=== PATIENT | female | born 1990 | race Caucasian/White ===

== ENCOUNTER 2018-02-21 13:50 | Emergency (ER) | payer MEDICAID ==
--- NOTE | 2018-02-21 14:17 | EDPHY ---
H & P Stated Complaint: c/o small painful bump just under umbilicus starting this am Time Seen by Provider: 02/21/18 14:08 HPI/ROS: CHIEF COMPLAINT: Abdominal lump HISTORY OF PRESENT ILLNESS: The patient is a 27-year-old female who presents to the emergency department complaining of a painful lump in her belly button. She states that it has never bothered her before today. No vomiting or nausea. Normal bowel movements. No fever. No trauma. No urinary symptoms. No vaginal symptoms. She denies . REVIEW OF SYSTEMS: Constitutional: denies: chills, fever, recent illness, recent injury EENTM: denies: blurred vision, double vision, nose congestion Respiratory: denies: cough, shortness of breath Cardiac: denies: chest pain, irregular heart rate, lightheadedness, palpitations Gastrointestinal/Abdominal: See HPI denies: abdominal pain, diarrhea, nausea, vomiting, blood streaked stools Genitourinary: denies: dysuria, frequency, hematuria, pain Musculoskeletal: denies: joint pain, muscle pain Skin: denies: lesions, rash, jaundice, bruising Neurological: denies: headache, numbness, paresthesia, tingling, dizziness, weakness Hematologic/Lymphatic: denies: blood clots, easy bleeding, easy bruising Immunologic/allergic: denies: HIV/AIDS, transplant EXAM: GENERAL: Well-appearing, well-nourished and in no acute distress. HEAD: Atraumatic, normocephalic. EYES: Pupils equal round and reactive to light, extraocular movements intact, sclera anicteric, conjunctiva are normal. ENT: TMs normal, nares patent, oropharynx clear without exudates. Moist mucous membranes. NECK: Normal range of motion, supple without lymphadenopathy or JVD. LUNGS: Breath sounds clear to auscultation bilaterally and equal. No wheezes rales or rhonchi. HEART: Regular rate and rhythm without murmurs, rubs or gallops. ABDOMEN: Very small umbilical hernia that is painful but easily reducible. It recurs. Soft, nontender, normoactive bowel sounds. No guarding, no rebound. No masses appreciated. BACK: No CVA tenderness, no spinal tenderness, step-offs or deformities EXTREMITIES: Normal range of motion, no pitting or edema. No clubbing or cyanosis. NEUROLOGICAL: Cranial nerves II through XII grossly intact. Normal speech, normal gait. 5/5 strength, normal movement in all extremities, normal sensation PSYCH: Normal mood, normal affect. SKIN: Warm, dry, normal turgor, no visible rashes or lesions. Source: Patient Exam Limitations: No limitations - Medical/Surgical History Hx Asthma: Yes Hx Chronic Respiratory Disease: No Hx Diabetes: No Hx Cardiac Disease: No Hx Renal Disease: No Hx Cirrhosis: No Hx Alcoholism: No Hx HIV/AIDS: No Hx Splenectomy or Spleen Trauma: No Other PMH: asthma, add - Family History Significant Family History: No pertinent family hx - Social History Smoking Status: Current every day smoker Alcohol Use: None Constitutional: Initial Vital Signs Temperature (C) 36.6 C 02/21/18 13:55 Heart Rate 107 H 02/21/18 13:55 Respiratory Rate 18 02/21/18 13:55 Blood Pressure 119/80 02/21/18 13:55 O2 Sat (%) 98 02/21/18 13:55 O2 Delivery Mode Room Air Allergies/Adverse Reactions: No Known Allergies Allergy (Unverified 02/21/18 13:58) Home Medications: Medication Instructions Recorded Adderall 10 MG (*) 02/21/18 Albuterol 02/21/18 Medical Decision Making ED Course/Re-evaluation: Patient has a small tender umbilical hernia that is reducible. It tends to recurred. She has not had any symptoms of acute abdomen. No symptoms of bowel obstruction or necrosis or incarceration. We discussed doing CT scan to evaluate further and when discussing the risks and benefits agreed not to do 1 at this point. Discussed follow-up with surgery for elective repair. She understands this plan and declines further workup or testing this time. I offered pain medication which she declines. Differential Diagnosis: Partial list of the Differential diagnosis considered include but were not limited to; umbilical hernia, incarceration and although unlikely based on the history and physical exam, I also considered infection, perforation. I discussed these differential diagnoses and the plan with the patient as well as the usual and expected course. The patient understands that the diagnosis is provisional and that in medicine we are not always correct and that further workup is often warranted. Usual and customary warnings were given. All of the patient's questions were answered. The patient was instructed to return to the emergency department should the symptoms at all worsen or return, otherwise to followup with the physician as we discussed. Departure - Departure Disposition: Home, Routine, Self-Care Clinical Impression: Umbilical hernia Qualifiers: Obstruction and gangrene presence: without obstruction or gangrene Qualified Code(s): K42.9 - Umbilical hernia without obstruction or gangrene Condition: Fair Instructions: Umbilical Hernia (ED) Referrals: Britni Villarreal MD [Primary Care Provider] - As per Instructions Devonte Parikh MD [Medical Doctor] - 2-3 days, call for appt.
[2018-02-21 14:30] VITALS: BP 112/75
== END 2018-02-21 14:29 | disposition home or self-care (01) ==
DX: K42.9 Umbilical hernia without obstruction or gangrene (principal); F17.200 Nicotine dependence, unspecified, uncomplicated